=== PATIENT | female | born 1995 ===

== ENCOUNTER 2020-10-21 23:02 | Inpatient (IN) | payer MEDICAID ==
[~2020-10-21] VITALS: Ht 180.3 cm; Wt 88.2 kg
--- NOTE | 2020-10-21 23:15 | NUR ---
2315 G2L0 40.3 WEEK GEST TO LR5 IN ACTIVE LABOR. CRYING AND VERY LOUD. C/O BACK ACHE. STATES WATER BROKE AT 2200 AND LABOR STARTED THEN. TO BED AND EFM ON. LEAKING COPIOUS AMT OF CL FLUID. SVE 5/100/-1. UNABLE TO LAY STILL. TO HIGH FOWLERS FOR C/O BACK HURTING. 2330 DR VIGIL NOTIFIED AND ORDER TO ADMIT RECEIVED. 2335 IV STARTED AND IV ANTIBIOTICS STARTED. ADM ASSESSMENT COMPLETED. STATES LAST SMOKED MJ TWO WEEKS AGO. SMOKES 3-4 CIG A DAY. REQUEST EPIDURAL. ANESTHSIA NOTIFIED. IV FLUID BOLUS INFUSING.
[2020-10-21 23:20] VITALS: BP 126/68; PULSE 76; TEMP 97.5
[2020-10-21 23:43] LABS: BASO # 0.1 (0.0-0.2); BASO % 0.4 % (0.0-2.0); EOS # 0.1 (0.0-0.7); EOS % 0.8 % (0-4.0); GRAN # 9.1 (1.4-6.5); GRAN % 67.6 % (42.2-75.2); HEMATOCRIT 29.2 % (37.0-47.0); HEMOGLOBIN 8.9 g/dl (12.5-16.0); LYMPH # 2.8 (1.2-3.4); LYMPH % 20.9 % (20.0-51.0); MEAN CELL VOLUME 68 fl (80.0-100.0); MEAN CORPUSCULAR HEMOGLOBIN 21 pg (27.0-31.0); MEAN CORPUSCULAR HGB CONC 31 g/dl (33.0-37.0); MEAN PLATELET VOLUME 11.4 fl (7.4-10.4); MONO # 1.3 (0.1-0.6); MONO % 9.5 % (1.7-9.3); PLATELET COUNT 242 K/mm3 (130-400); RED BLOOD COUNT 4.31 M/mm3 (4.10-5.30); REDCELL DISTRIBUTION WIDTH-CV 16.2 % (11.5-14.5)
[2020-10-21] MEDS ORDERED: LEXAPRO20 MG PO (23:52)
[2020-10-21] MEDS ORDERED: PRENATAL TABLET PO (23:52)
[2020-10-22] VITALS (28 sets, daily range): BP systolic 97–159; BP diastolic 48–95; PULSE 59–116; TEMP 97.7–98.1
--- NOTE | 2020-10-22 00:05 | NUR ---
0005 SITTING ON SIDE OF BED FOR EPIDURAL PLACEMENT. UNABLE TO TRACE FHT'S WHILE SITTING UP. SEE ANESTHSIA RECORD FOR MORE INFORMATION.
--- NOTE | 2020-10-22 00:30 | NUR ---
0030 FHT BASELINE 100. SVE 6100/0. BARRETO CATH INSERTED AND UA FOR UDS OBTAINED AND TO LAB. TURNED TO LEFT SIDE. FHTS BASE 115 WTIH SOME ACCELS AND VARIABLE DECELS TO 90'S.
--- NOTE | 2020-10-22 00:50 | NUR ---
0050 TURNED FROM LL TO RL. EFM BASELINE 120'S . FEELING MUCH BETTER.
[2020-10-22 01:08] LABS: TRICYCLIC ANTIDEPRESS URINE NEGATIVE
--- NOTE | 2020-10-22 04:05 | NUR ---
0405 DR VIGIL HERE. CONTINUES TO PUSH WITH CONTRACTIONS 0415 READIED FOR DELIVERY 0425 DELIVERED VIABLE FE OVER 2ND DEGREE LAC WITH APGARS 8/9/9 IV CONTS TO INFUSE. 0427 DELIVERY PLACENTA. LACERATION REPAIR IN PROGRESS. [address] VIGIL WITH ORDER TO REMOVE AT 0800. FF FIRM WITH NO EXCESS VAG BLEEDING.
--- NOTE | 2020-10-22 08:01 | NUR ---
0800 VAGINAL PACKING REMOVED AT THIS TIME PER DR ORDER. FUNDUS FIRM MODERATE BLEEDING NOTED. PERICARE DONE AND NEW MAHNAZ PAD PLACED TO OBSERVE BLEEDING
--- NOTE | 2020-10-22 08:35 | NUR ---
0820 PAD SATURATED WITH BLOOD AT THIS TIME. FUNDUS FIRM. BUT BLADDER FULL. ASSIST PATIENT TO BATHROOM AND VOIDS 1000CC. BLEEDING WNL. PATIENT ASSISTED BACK TO BED
--- NOTE | 2020-10-22 14:39 | NUR ---
Mailing Specialist received consult for patient due to marijuana use during . Patient tested positive during an office visit on 06/22/20 and on 10/22/20 at time of delivery. SW met with patient to discuss needs and resources. Patient lives in [place] with the father of , Nilson (ph#[phone]) who is supportive. Patient states Nilson has been at bedside but has left four just a couple hours. Nilson is employed as a contractor. Patient is not employed and plans to stay home with baby. Patient reports her parents, Kristina and Edmond are supportive and live in [place]. Patient also advised Nilson's father will be visiting from [place] next week to provide support. Patient has all needed supplies for baby including crib, bassinet, stroller, diapers, and wipes. Patient plans to formula feed and is set up with [facility]. Patient reports they typically can afford their bills but have some concerns about this month. SW provided [facility] Resource Guide and reviewed resources available through the Department for Children and Families. Patient reports she previously had a miscarriage and this is her first child. SW addressed patient's history of anxiety and depression. Patient is currently on Lexapro and plans to continue. Patient is interested in getting set up with Abbi Rader, Therapist and gave SW permission to call Abbi and leave a message with her contact information. SW provided patient with contact information for Abbi. SW then contacted Abbi, who is out of the office of Sunday' and left a message with patient's contact information. SW also addressed patient's positive UDS for marijuana. Patient states the last time she used was about three weeks ago and plans on quitting. Patient has no further questions or concerns at this time. SW made report to Child Protective Services due to positive UDS. Cord blood pending. KENNY collaborated the above information to RN who has no additional concerns at this time.
--- NOTE | 2020-10-22 14:54 | NUR ---
Leather Staker spoke with Abbi Rader, Therapist who advised she made contact with patient and has an appointment scheduled.
[2020-10-23 02:30] VITALS: BP 104/62; PULSE 90; TEMP 98
[2020-10-23 07:26] VITALS: BP 142/87; PULSE 104; TEMP 98.3
[2020-10-23 07:30] VITALS: BP 122/81
[2020-10-23] MEDS ORDERED: MOTRIN 800800 MG/TAB PO (08:32)
[2020-10-23] MEDS ORDERED: PERCOCET 325 MG1 TA2 PO (08:32)
--- NOTE | 2020-10-23 12:47 | NUR ---
Rating pain 5/10 and would like pain medication. Describes as sore. Administer Motrin as prescribed, explain that we will reassess at later time. Patient sitting up in bed eating lunch. Significant other in room. Denies additional needs.
--- NOTE | 2020-10-23 14:58 | NUR ---
Patient given discharge instructions. Denies questions.
--- NOTE | 2020-10-27 10:02 | NUR ---
Patient's infant's cord blood was positive for cannabinoids. belt worker filed CPS report #[id number] and faxed cord results.
== END 2020-10-23 15:30 | disposition home or self-care (01) | DRG 806 ==
LOC: LDRO 23:02 → LDR 23:29 → OB 10-22 10:03
PROVIDERS: Obstetrics & Gynecology; ADMIT Obstetrics & Gynecology
PROC: 10E0XZZ Delivery of Products of Conception, External Approach (ICD-10-PCS; principal; 2020-10-21)
PROC: 0KQM0ZZ Repair Perineum Muscle, Open Approach (ICD-10-PCS; 2020-10-21)
PROC: 10907ZC Drainage of Amniotic Fluid, Therapeutic from Products of Conception, Via Natural or Artificial Opening (ICD-10-PCS; 2020-10-21)
DX: O48.0 Post-term pregnancy (principal); O99.324 Drug use complicating childbirth; Z37.0 Single live birth; O99.344 Other mental disorders complicating childbirth; F41.9 Anxiety disorder, unspecified; F32.9 Major depressive disorder, single episode, unspecified; F12.90 Cannabis use, unspecified, uncomplicated; O99.824 Streptococcus B carrier state complicating childbirth; O70.1 Second degree perineal laceration during delivery; O99.334 Smoking (tobacco) complicating childbirth; F17.200 Nicotine dependence, unspecified, uncomplicated; Z3A.40 40 weeks gestation of pregnancy
CPT/HCPCS: J2540; J2590; J2795; J7120